=== PATIENT | female | born 1985 | race American Indian/Alaskan Native ===

== ENCOUNTER 2019-05-30 03:09 | Emergency (ER) | payer SELFPAY ==
[2019-05-30] MEDS ORDERED: NACL 0.9% 1000 ML 1,000 ML IV ONE (03:53)
[2019-05-30] MEDS ORDERED: ZOFRAN IV ONE (03:57)
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
[2019-05-30 04:29] LABS: Hematocrit 40.8 % (30.3-42.9); Hemoglobin 14.4 gm/dl (10.1-14.3); Mean Corpuscular HGB Conc 35 % (30-34); Mean Corpuscular Volume 101 fl (79-97); Platelet Count 259 K/mm3 (140-440); Red Blood Count 4.04 M/mm3 (3.65-5.03); Red Cell Distribution Width 12.1 % (13.2-15.2)
[2019-05-30 04:43] LABS: BUN/Creatinine Ratio 12; Blood Urea Nitrogen 11 mg/dL (7-17); Calcium 9.3 mg/dL (8.4-10.2); Hemolysis Index 6
[2019-05-30 05:05] LABS: Basophils % (Manual) 0 % (0.0-1.8); Eosinophils % (Manual) 0 % (0.0-4.3); Platelet Estimate Consistent w Auto; RBC Morphology Normal; Total Cells Counted 100
--- NOTE | 2019-05-30 05:10 | Cat Scan Report ---
CT head without contrast INDICATION : ams. Acute altered mental status TECHNIQUE: Axial imaging performed from the skull apex through the skull base without the use of con trast. All CT scans at this location are performed using CT dose reduction for ALARA by means of aut omated exposure control. COMPARISON: None FINDINGS: Parenchyma: No acute intracranial hemorrhage or parenchymal abnormality. Ventricles: Ventricles are normal in size and appear symmetric. Soft tissues: Soft tissues including the orbits appear normal. Bones: No acute osseous abnormality. Sinuses: Sinuses and mastoid air cells are clear. IMPRESSION: No acute abnormality. Signer Name: Juan M Mejía MD Signed: 05/30/2019 5:05 AM Workstation Name: [id number]
[2019-05-30 10:01] VITALS: BP 95/62
[2019-05-30 10:58] LABS: Amphetamine Screen,Urine PRESUMPTIVE NEGATIVE; Benzodiazepines Screen,Urine PRESUMPTIVE NEGATIVE; Cannabinoid Screen,Urine PRESUMPTIVE NEGATIVE; Cocaine Screen,Urine PRESUMPTIVE NEGATIVE; Methadone Screen,Urine PRESUMPTIVE NEGATIVE; Opiate Screen,Urine PRESUMPTIVE NEGATIVE
== END 2019-05-30 11:14 | disposition home or self-care (01) ==
LOC: ED 03:09
DX: F10.129 Alcohol abuse with intoxication, unspecified (principal); R41.82 Altered mental status, unspecified; F17.200 Nicotine dependence, unspecified, uncomplicated; Z21 Asymptomatic human immunodeficiency virus [HIV] infection status
CPT/HCPCS: 36415; 70450; 80048; 80307; 84703; 85007; 85025; 96361; 96374; 99284; J2405; J7030; 80320; G0480

== ENCOUNTER 2021-10-29 02:17 | Emergency (ER) | payer OTHER ==
[2021-10-29] MEDS ORDERED: SODIUM CHLORIDE 0.9% 1000 ML 1,000 ML IV ONE (02:51)
[2021-10-29] MEDS ORDERED: ONDANSETRON 4 MG/2 ML INJ IV ONE (02:51)
[2021-10-29 02:52] VITALS: BP 138/96
[2021-10-29 03:35] LABS: Alanine Aminotransferase 31 units/L (7-56); BUN/Creatinine Ratio 14; Blood Urea Nitrogen 14 mg/dL (7-17); Calcium 9.8 mg/dL (8.4-10.2); Hemolysis Index 2
[2021-10-29 04:03] LABS: Hematocrit 39.2 % (30.3-42.9); Hemoglobin 13.2 gm/dl (10.1-14.3); Mean Corpuscular HGB Conc 34 % (30-34); Mean Corpuscular Volume 100 fl (79-97); Platelet Count 276 K/mm3 (140-440); Red Blood Count 3.92 M/mm3 (3.65-5.03); Red Cell Distribution Width 12.3 % (13.2-15.2)
[2021-10-29] MEDS ORDERED: KETOROLAC 30 MG/1 ML INJ IV ONE (04:32)
--- NOTE | 2021-10-29 04:38 | Emergency Department Report ---
ED General Adult HPI - General Chief complaint: Abdominal Pain Stated complaint: "OVERDOSE" Time Seen by Provider: 10/29/21 02:47 Source: patient Mode of arrival: Ambulatory Limitations: No Limitations - History of Present Illness Initial comments: Patient presents with a 1 to 2-day history of GI upset. She reports having epigastric pain associate with nausea and vomiting. She believes that she took too much Tylenol. She took 2 extra strength Tylenol and then later took 2 more extra strength Tylenol. She is concerned that she might have overdosed on Tylenol. She states that the symptoms started after she took Tylenol. She was taking Tylenol because her right mandibular teeth were hurting. There was no history of jaw trauma. She had temperature sensitivity noted to the teeth. She felt that she had an infection brewing. She was taking Tylenol to try to compensate for the pain. That really did not help, but seem to upset her stomach. Patient has not had hematemesis or coffee-ground emesis. She has had no melenic stool. There is no history of recent travel or trauma. Pain is a burning and cramping pain in the epigastric area. It does not radiate or migrate. - Related Data Home Medications Medication Instructions Recorded Confirmed Last Taken Darunavir [Prezista] 600 mg PO DAILY 09/14/13 09/14/13 09/14/13 09:00 Emtricitabin/Tenofovir [TRUVADA 1 tab PO QDAY 09/14/13 09/14/13 09/14/13 09:00 200-300 mg] Ritonavir [Norvir] 300 mg PO QDAY 09/14/13 09/14/13 09/14/13 09:00 Previous Rx's Medication Instructions Recorded Last Taken Type Benzonatate [Tessalon Perle] 100 mg PO TID PRN #30 capsule 09/14/13 Unknown Rx Ondansetron [Zofran ODT TAB] 8 mg PO Q8HR PRN #20 tab.rapdis 10/29/21 Unknown Rx Penicillin V Potassium 500 mg PO TID #21 tab 10/29/21 Unknown Rx traMADoL [Ultram 50 MG tab] 50 mg PO Q6HR PRN #15 tablet 10/29/21 Unknown Rx Allergies Allergy/AdvReac Type Severity Reaction Status Date / Time No Known Allergies Allergy Verified 10/29/21 02:52 ED Review of Systems ROS: Stated complaint: "OVERDOSE" Other details as noted in HPI Comment: All other systems reviewed and negative Constitutional: denies: fever Eyes: denies: vision change ENT: denies: throat pain Respiratory: denies: cough Cardiovascular: denies: chest pain Endocrine: denies: unexplained weight loss Gastrointestinal: as per HPI Genitourinary: denies: dysuria Musculoskeletal: denies: back pain Skin: denies: rash Neurological: denies: headache Hematological/Lymphatic: denies: easy bruising ED Past Medical Hx - Past Medical History Hx HIV: Yes Additional medical history: hiv - Surgical History Past Surgical History?: No - Family History Family history: no significant - Social History Smoking Status: Current Some Day Smoker Substance Use Type: None - Medications Home Medications: Home Medications Medication Instructions Recorded Confirmed Last Taken Type Benzonatate [Tessalon Perle] 100 mg PO TID PRN #30 capsule 09/14/13 Unknown Rx Darunavir [Prezista] 600 mg PO DAILY 09/14/13 09/14/13 09/14/13 09:00 History Emtricitabin/Tenofovir [TRUVADA 1 tab PO QDAY 09/14/13 09/14/13 09/14/13 09:00 History 200-300 mg] Ritonavir [Norvir] 300 mg PO QDAY 09/14/13 09/14/13 09/14/13 09:00 History Ondansetron [Zofran ODT TAB] 8 mg PO Q8HR PRN #20 tab.rapdis 10/29/21 Unknown Rx Penicillin V Potassium 500 mg PO TID #21 tab 10/29/21 Unknown Rx traMADoL [Ultram 50 MG tab] 50 mg PO Q6HR PRN #15 tablet 10/29/21 Unknown Rx ED Physical Exam - General Limitations: No Limitations, Other (Pulses noted and normal) General appearance: alert, in distress (Uncomfortable) - Head Head exam: Present: atraumatic, normocephalic, normal inspection - Eye Eye exam: Present: normal appearance, EOMI. Absent: scleral icterus - ENT ENT exam: Present: mucous membranes moist, normal external ear exam, other (Dental caries with dental tenderness in the right lower mandible teeth diffusely. There is no gingival erythema or edema) - Neck Neck exam: Present: normal inspection. Absent: meningismus - Respiratory Respiratory exam: Present: normal lung sounds bilaterally. Absent: respiratory distress - Cardiovascular Cardiovascular Exam: Present: normal rhythm, tachycardia - GI/Abdominal GI/Abdominal exam: Present: soft, tenderness (Epigastric). Absent: distended, guarding, rebound - Extremities Exam Extremities exam: Present: normal capillary refill. Absent: pedal edema - Back Exam Back exam: Absent: CVA tenderness (R), CVA tenderness (L) - Neurological Exam Neurological exam: Present: alert, oriented X3, CN II-XII intact, normal gait - Psychiatric Psychiatric exam: Present: normal affect, normal mood - Skin Skin exam: Present: warm, dry ED Course Vital Signs 10/29/21 02:48 Temperature 98.5 F Pulse Rate 118 H Respiratory 19 Rate Blood Pressure 138/96 O2 Sat by Pulse 99 Oximetry - Reevaluation(s) Reevaluation #1: 10/29/21 04:34 Labs have been noted. At this time, patient was discharged ED Medical Decision Making - Lab Data Result diagrams: 10/29/21 02:55 10/29/21 02:55 - Medical Decision Making Patient presents with GI upset after taking Tylenol. I believe this is incidental. She has evidence of an apical alveolar abscess and will be placed on antibiotics. She can be given analgesics for this. Patient does have GI upset, but I do not believe this is related to a Tylenol overdose. There is no evidence of acute hepatitis or pancreatitis. There is no distention or tympany to suggest bowel obstruction. She certainly could have gastritis or an ulcer that can be followed as an outpatient. Critical Care Time: No Critical care attestation.: If time is entered above; I have spent that time in minutes in the direct care of this critically ill patient, excluding procedure time. ED Disposition Clinical Impression: Apical alveolar abscess, Epigastric pain Nausea & vomiting Qualifiers: Vomiting type: unspecified Qualified Code(s): R11.2 - Nausea with vomiting, unspecified Disposition: 01 HOME / SELF CARE / HOMELESS Is pt being admited?: No Condition: Stable Instructions: Abdominal Pain (ED), Dental Abscess, Nausea and Vomiting, Adult, Abdominal Pain, Adult, [id number] Additional Instructions: Have a bland diet. Drink plenty of water. Return for problems. Follow-up with your regular doctor and your dentist. Continue home medication. Prescriptions: Penicillin V Potassium 500 mg PO TID #21 tab traMADoL [Ultram 50 MG tab] 50 mg PO Q6HR PRN #15 tablet PRN Reason: Pain Ondansetron [Zofran ODT TAB] 8 mg PO Q8HR PRN #20 tab.rapdis PRN Reason: Nausea Referrals: PRIMARY CARE, [Referring] - 3-5 Days
[2021-10-29] MEDS ORDERED: PENICILLIN V POTASSIUM 250 MG TAB PO ONE (05:32)
== END 2021-10-29 06:18 | disposition home or self-care (01) ==
LOC: ED 02:17
DX: K04.7 Periapical abscess without sinus (principal); R10.13 Epigastric pain; R11.2 Nausea with vomiting, unspecified; F17.200 Nicotine dependence, unspecified, uncomplicated
CPT/HCPCS: 36415; 80053; 83690; 85027; 96361; 96374; 96375; 99283; J1885; J7030; Q0162